=== PATIENT | female | born 1975 | race Hispanic/Latino ===

== ENCOUNTER 2019-01-05 08:39 | Emergency (ER) | payer OTHER ==
[2019-01-05] MEDS ORDERED: HYDROCODONE/ACETAMINOPHEN 5/325 MG TAB ONE (09:21)
[2019-01-05] MEDS ORDERED: CYCLOBENZAPRINE HCL 10 MG TABLET ONE ×2 (09:21→09:58)
[2019-01-05] MEDS ORDERED: ONDANSETRON ODT 4 MG TAB ONE (09:21)
== END 2019-01-05 11:56 | disposition home or self-care (01) ==
LOC: EDH 08:39
DX: S13.9XXA Sprain of joints and ligaments of unspecified parts of neck, initial encounter (principal); R51 Headache; V49.49XA Driver injured in collision with other motor vehicles in traffic accident, initial encounter; Y93.89 Activity, other specified; Y92.89 Other specified places as the place of occurrence of the external cause; Y99.8 Other external cause status
CPT/HCPCS: 70450; 72125; 81025